=== PATIENT | female | born 1990 | race Caucasian/White ===

== ENCOUNTER 2022-06-22 18:09 | Emergency (ER) | payer BC, MEDICAID, OTHER ==
--- NOTE | 2022-06-22 18:21 | ERPHSYRPT ---
- History of Present Illness Time Seen by Provider: 06/22/22 18:21 Source: patient Exam Limitations: no limitations Physician History: This is a 31-year-old white female patient who was diagnosed with strep pharyngitis yesterday and started on a Z-Ambrose. In the last 24 hours, the patient states that she just generally feels terrible. She has body aches she has nausea and her throat is hurting. She denies chest pain. She denies shortness of breath. She has no abdominal pain. Timing/Duration: yesterday Cough Quality/Degree: mild Possible Cause: no prior episodes Modifying Factors: Improves With: coughing Associated Symptoms: cough, headache, muscle aches, sore throat Allergies/Adverse Reactions: coconut Allergy (Severe, Verified 06/22/22 18:26) anaphalaxys NSAIDS (Non-Steroidal Anti-Inflamma Adverse Reaction (Intermediate, Verified 06/22/22 18:26) ulcerative cholitis Home Medications: Dextroamphetamine/Amphetamine [Adderall Xr 20 mg Capsule] 20 mg PO BID 06/22/22 [History] Travel Risk - International Travel Have you traveled outside of the country in past 3 weeks: No - Coronavirus Screening Are you exhibiting any of the following symptoms?: Yes Symptoms: Cough: New Onset, Headaches/Body Aches/Fatigue Close contact with a COVID-19 positive Pt in past 14-21 Days: No - Review of Systems Constitutional: Weakness Eyes: No Symptoms Ears, Nose, & Throat: No Symptoms Respiratory: Cough Cardiac: No Symptoms Abdominal/Gastrointestinal: Nausea, No Abdominal Pain, No Vomiting, No Diarrhea, No Constipation Genitourinary Symptoms: No Symptoms Musculoskeletal: Arthralgias, Myalgias Skin: No Symptoms Neurological: No Symptoms Psychological: No Symptoms Endocrine: No Symptoms Hematologic/Lymphatic: No Symptoms Immunological/Allergic: No Symptoms All Other Systems: Reviewed and Negative - Past Medical History Pertinent Past Medical History: Yes - Past Surgical History Past Surgical History: Yes - Nursing Vital Signs Nursing Vital Signs: Initial Vital Signs Temperature 98.3 F 06/22/22 18:20 Pulse Rate 77 06/22/22 18:20 Respiratory Rate 20 06/22/22 18:20 Blood Pressure 113/73 06/22/22 18:20 O2 Sat by Pulse Oximetry 98 06/22/22 18:20 Pain Scale Pain Intensity 8 - Physical Exam General Appearance: no apparent distress, alert, anxiety Eye Exam: PERRL/EOMI, eyes nml inspection Ears, Nose, Throat Exam: dry mucous membranes, pharyngeal erythema Neck Exam: normal inspection, non-tender, supple, full range of motion Respiratory Exam: normal breath sounds, lungs clear, airway intact, No chest tenderness, No respiratory distress Cardiovascular Exam: regular rate/rhythm, normal heart sounds, normal peripheral pulses Gastrointestinal/Abdomen Exam: soft, normal bowel sounds, tenderness Pelvic Exam: not done Rectal Exam: not done Back Exam: normal inspection, normal range of motion, No CVA tenderness Extremity Exam: normal inspection, normal range of motion, pelvis stable Neurologic Exam: alert, oriented x 3, cooperative, 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 nml as tested, normal mood/affect, nml cerebellar function, nml station & gait, sensation nml Skin Exam: normal color, warm, dry Lymphatic Exam: No adenopathy SpO2 Interpretation: normal - Course Nursing assessment & vital signs reviewed: Yes Ordered Tests: Active Orders 24 hr Category Date Time Status BLOOD CULTURE Stat Lab 06/22/22 19:20 Received CBC W DIFF Stat Lab 06/22/22 19:15 Completed CMP Stat Lab 06/22/22 19:15 Completed HCG QUALITATIVE,SERUM Stat Lab 06/22/22 19:15 Completed [place] Screen Stat Lab 06/22/22 19:15 Completed POCT GLUCOSE Stat Lab 06/22/22 18:46 Completed UA W/RFX UR CULTURE Stat Lab 06/22/22 19:33 Completed Medication Summary Generic Name Dose Route Start Last Admin Trade Name Freq PRN Reason Stop Dose Admin Sodium Chloride 1,000 mls @ 999 mls/hr 06/22/22 20:12 06/22/22 20:15 Sodium Chloride 0.9% 1000 Ml IV 06/22/22 21:12 999 mls/hr .Q1H1M STA Administration Discontinued Medications Generic Name Dose Route Start Last Admin Trade Name Freq PRN Reason Stop Dose Admin Hydrocodone Bitart/Acetaminophen 10 ml 06/22/22 19:26 06/22/22 19:31 Hydrocodone/Acetaminophen 5 Ml Udcup PO 06/22/22 19:27 10 ml STAT STA Administration Hydrocodone Bitart/Acetaminophen Confirm 06/22/22 19:30 Hydrocodone/Acetaminophen 5 Ml Udcup Administered 06/22/22 19:31 Dose 10 ml .ROUTE .STK-MED ONE Methylprednisolone Sodium 0 mg 06/22/22 19:09 06/22/22 19:18 Succinate 125 mg/ Sterile IV 06/22/22 19:10 125 mg Water 2 ml STAT ONE Administration Sodium Chloride 500 mls @ 500 mls/hr 06/22/22 18:56 06/22/22 20:30 Sodium Chloride 0.9% 500 Ml IV 06/22/22 19:55 Infused .Q1H ONE Infusion Ceftriaxone Sodium/Dextrose 1 g in 50 mls @ 100 mls/hr 06/22/22 19:06 06/22/22 20:16 Rocephin 1 Gm-D5w 50 Ml Bag IV 06/22/22 19:35 Infused STAT STA Infusion Ceftriaxone Sodium/Dextrose Confirm 06/22/22 19:15 Rocephin 1 Gm-D5w 50 Ml Bag Administered 06/22/22 19:16 Dose 1 g in 50 mls @ ud IV .STK-MED ONE Sodium Chloride Confirm 06/22/22 19:15 Sodium Chloride 0.9% 500 Ml Administered 06/22/22 19:16 Dose 500 mls @ ud IV .STK-MED ONE Sodium Chloride Confirm 06/22/22 20:13 Sodium Chloride 0.9% 1000 Ml Administered 06/22/22 20:14 Dose 1,000 mls @ ud .ROUTE .STK-MED ONE Methylprednisolone Sodium Succinate Confirm 06/22/22 19:15 Methylprednis Sod Succ 125 Mg/2 Ml Vial Administered 06/22/22 19:16 Dose 125 mg .ROUTE .STK-MED ONE Potassium Chloride 10 meq 06/22/22 20:11 06/22/22 20:14 Potassium Chloride Tab 10 Meq Tab PO 06/22/22 20:12 10 meq STAT ONE Administration Potassium Chloride Confirm 06/22/22 20:13 Potassium Chloride Tab 10 Meq Tab Administered 06/22/22 20:14 Dose 10 meq PO .STK-MED ONE Sterile Water Confirm 06/22/22 19:15 Water For Injection,Sterile 10 Ml Vial Administered 06/22/22 19:16 Dose 10 ml IJ .STK-MED ONE Lab/Rad Data: Laboratory Result Diagrams 06/22/22 19:15 06/22/22 19:15 Laboratory Results 06/22/22 06/22/22 06/22/22 Range/Units 19:33 19:20 19:15 WBC (4.0-10.5) x10^3/uL RBC (4.1-5.4) x10^6/uL Hgb (12.0-16.0) g/dL Hct (35-47) % MCV (78-100) fL MCH (26-32) pg MCHC (32-36) g/dL RDW (11.5-14.0) % Plt Count (150-450) x10^3/uL MPV (7.5-11.0) fL Gran % (36.0-66.0) % Immature Gran % (Auto) (0.00-0.4) % Nucleat RBC Rel Count (0.00-0.1) % Eos # (Auto) (0-0.5) x10^3/uL Immature Gran # (Auto) (0.00-0.03) x10^3u/L Absolute Lymphs (auto) (1.0-4.6) x10^3/uL Absolute Monos (auto) (0.0-1.3) x10^3/uL Absolute Nucleated RBC (0.00-0.01) x10^3u/L Lymphocytes % (24.0-44.0) % Monocytes % (0.0-12.0) % Eosinophils % (0.00-5.0) % Basophils % (0.0-0.4) % Absolute Granulocytes (1.4-6.9) x10^3/uL Basophils # (0-0.4) x10^3/uL Sodium (137-145) mmol/L Potassium (3.5-5.1) mmol/L Chloride (98-107) mmol/L Carbon Dioxide (22-30) mmol/L Anion Gap (5-15) MEQ/L BUN (7-17) mg/dL Creatinine (0.52-1.04) mg/dL Estimated GFR ML/MIN Glucose (74-106) mg/dL POC Glucometer (74 to 106) mg/dL Calcium (8.4-10.2) mg/dL Total Bilirubin (0.2-1.3) mg/dL AST (14-36) U/L ALT (0-35) U/L Alkaline Phosphatase (38-126) U/L Serum Total Protein (6.3-8.2) g/dL Albumin (3.5-5.0) g/dL Serum , Qual NEGATIVE (Negative) Urine Color Yellow (Yellow) Urine Appearance Clear (Clear) Urine pH 6.5 (4.6-8.0) Ur Specific [place] <=1.005 (1.005-1.030) Urine Protein Negative (Negative) Urine Glucose (UA) Negative (Negative) mg/dL Urine Ketones Negative (Negative) Urine Blood Trace (Negative) Urine Nitrite Negative (Negative) Urine Bilirubin Negative (Negative) Urine Urobilinogen 0.2 (0.2) mg/dL Ur Leukocyte Esterase Negative (Negative) U Hyaline Cast (Auto) NONE SEEN (0-2) /LPF Urine Microscopic RBC 3-5 (0-5) /HPF Urine Microscopic WBC 0-2 (0-5) /HPF Ur Epithelial Cells Few (None Seen) /HPF Urine Bacteria None Seen (None Seen) /HPF Urine Culture Reflexed NO (NO) Monoscreen NEGATIVE (Negative) Influenza Type A Ag NEGATIVE (NEGATIVE) Influenza Type B Ag NEGATIVE (NEGATIVE) RSV (PCR) NEGATIVE (Negative) SARS-CoV-2 (PCR) NEGATIVE (NEGATIVE) 06/22/22 06/22/22 06/22/22 Range/Units 19:15 19:15 18:46 WBC 19.2 H (4.0-10.5) x10^3/uL RBC 4.49 (4.1-5.4) x10^6/uL Hgb 13.3 (12.0-16.0) g/dL Hct 41.1 (35-47) % MCV 91.5 (78-100) fL MCH 29.6 (26-32) pg MCHC 32.4 (32-36) g/dL RDW 12.6 (11.5-14.0) % Plt Count 337 (150-450) x10^3/uL MPV 9.7 (7.5-11.0) fL Gran % 84.0 H (36.0-66.0) % Immature Gran % (Auto) 0.7 H (0.00-0.4) % Nucleat RBC Rel Count 0.0 (0.00-0.1) % Eos # (Auto) 0.01 (0-0.5) x10^3/uL Immature Gran # (Auto) 0.13 H (0.00-0.03) x10^3u/L Absolute Lymphs (auto) 1.56 (1.0-4.6) x10^3/uL Absolute Monos (auto) 1.32 H (0.0-1.3) x10^3/uL Absolute Nucleated RBC 0.00 (0.00-0.01) x10^3u/L Lymphocytes % 8.1 L (24.0-44.0) % Monocytes % 6.9 (0.0-12.0) % Eosinophils % 0.1 (0.00-5.0) % Basophils % 0.2 (0.0-0.4) % Absolute Granulocytes 16.10 H (1.4-6.9) x10^3/uL Basophils # 0.04 (0-0.4) x10^3/uL Sodium 138 (137-145) mmol/L Potassium 3.2 L (3.5-5.1) mmol/L Chloride 101 (98-107) mmol/L Carbon Dioxide 26 (22-30) mmol/L Anion Gap 14.7 (5-15) MEQ/L BUN 5 L (7-17) mg/dL Creatinine 0.98 (0.52-1.04) mg/dL Estimated GFR > 60.0 ML/MIN Glucose 125 H (74-106) mg/dL POC Glucometer 129 H (74 to 106) mg/dL Calcium 8.6 (8.4-10.2) mg/dL Total Bilirubin 0.60 (0.2-1.3) mg/dL AST 22 (14-36) U/L ALT 22 (0-35) U/L Alkaline Phosphatase 115 (38-126) U/L Serum Total Protein 7.9 (6.3-8.2) g/dL Albumin 4.4 (3.5-5.0) g/dL Serum , Qual (Negative) Urine Color (Yellow) Urine Appearance (Clear) Urine pH (4.6-8.0) Ur Specific [place] (1.005-1.030) Urine Protein (Negative) Urine Glucose (UA) (Negative) mg/dL Urine Ketones (Negative) Urine Blood (Negative) Urine Nitrite (Negative) Urine Bilirubin (Negative) Urine Urobilinogen (0.2) mg/dL Ur Leukocyte Esterase (Negative) U Hyaline Cast (Auto) (0-2) /LPF Urine Microscopic RBC (0-5) /HPF Urine Microscopic WBC (0-5) /HPF Ur Epithelial Cells (None Seen) /HPF Urine Bacteria (None Seen) /HPF Urine Culture Reflexed (NO) Monoscreen (Negative) Influenza Type A Ag (NEGATIVE) Influenza Type B Ag (NEGATIVE) RSV (PCR) (Negative) SARS-CoV-2 (PCR) (NEGATIVE) - Progress Progress: improved, re-examined Air Movement: good Progress Note: 06/22/22 20:54 Patient is symptomatically improved. This patient has already been diagnosed with Streptococcus pharyngitis. She is on a Z-Ambrose. She was having muscle aches and pains and nausea and just general malaise. The work-up was based on her symptoms, history present illness, and physical exam findings. The work-up included a CBC, CMP, urinalysis, IV placement, intravenous fluid infusion and intravenous antibiotics, steroids and hydrocodone/acetaminophen elixir. The work-up results were reviewed by me. Patient does have leukocytosis as expected. The results of the work-up were discussed with the patient. Discharge plan was discussed with the patient and this includes clear liquid diet, continue the Z-Ambrose, continue steroids orally, continue the hydrocodone elixir as ordered. Patient can also add ibuprofen for pain and fever control. Blood Culture(s) Obtained: Yes Antibiotics given: Yes Counseled pt/family regarding: lab results, diagnosis, need for follow-up Medical Desision Making - Discussion of managment Reviewed:: Test results Agreed on:: Treatment plan, need for follow-up - Diagnostic Testing Diagnostic test were ordered, analyzed, and reviewed by me: Yes - Risk of complications The pt has a mod risk of morbidity or mortality based on: Need for prescription drug management - Departure Departure Disposition: Home Clinical Impression: Leukocytosis, Arthralgia, Pharyngitis Condition: Stable Critical Care Time: No Referrals: DOCTOR,NO FAMILY [Primary Care Provider] - Follow up/PCP as directed Additional Instructions: Drink plenty of cool liquids before advancing your diet. Take the antibiotics and steroids as prescribed. Follow-up with your primary care provider for further evaluation management. Prescriptions: Hydrocodone/Acetaminophen [Hydrocodone-Acetamn 7.5-325/15] 10 ml PO Q8H PRN PRN #120 ml MDD 30 ml PRN Reason: Cough Prednisone 10 mg [Deltasone 10 mg] 10 mg PO TID #12 tablet
[2022-06-22] MEDS ORDERED: Sodium Chloride 0.9% 500 ML 500 ML IV ONE ×2 (18:56→19:15)
[2022-06-22] MEDS ORDERED: ROCEPHIN 1 Gm-D5w 50 ml Bag** 1 G/50 ML IVPB IV STA (19:06)
[2022-06-22] MEDS ORDERED: solu-MEDROL 125 MG, Sterile H2O 10 ml 2 ML IV ONE ×2 (19:09)
[2022-06-22] MEDS ORDERED: solu-MEDROL ONE (19:15)
[2022-06-22] MEDS ORDERED: Sterile H2O 10 ml IJ ONE (19:15)
[2022-06-22] MEDS ORDERED: ROCEPHIN 1 Gm-D5w 50 ml Bag** 1 G/50 ML IVPB IV ONE (19:15)
[2022-06-22] MEDS ORDERED: HYDROCODONE-ACETAMIN 2.5-108/5 ML SOLUTION PO STA (19:26)
[2022-06-22 19:27] LABS: BASOPHIL % 0.2 % (0.0-0.4); Basophil (Absolute #) 0.04 x10^3/uL (0-0.4); Eosinophil % 0.1 % (0.00-5.0); Eosinophil (Absolute #) 0.01 x10^3/uL (0-0.5); Hematocrit 41.1 % (35-47); Hemoglobin 13.3 g/dL (12.0-16.0); IMMATURE GRAN # 0.13 x10^3u/L (0.00-0.03); IMMATURE GRAN % 0.7 % (0.00-0.4); Lymphocyte (Absolute #) 1.56 x10^3/uL (1.0-4.6); Lymphocytes % 8.1 % (24.0-44.0); Mean Cell Volume 91.5 fL (78-100); Mean Corpuscular Hemoglobin 29.6 pg (26-32); Mean Corpuscular Hgb Concent. 32.4 g/dL (32-36); Mean Platelet Volume 9.7 fL (7.5-11.0); Monocyte (Absolute #) 1.32 x10^3/uL (0.0-1.3); Monocytes % 6.9 % (0.0-12.0); Platelet Count 337 x10^3/uL (150-450); Red Blood Count 4.49 x10^6/uL (4.1-5.4); Red Cell Distribution Width 12.6 % (11.5-14.0); White Blood Count 19.2 x10^3/uL (4.0-10.5)
[2022-06-22] MEDS ORDERED: HYDROCODONE-ACETAMIN 2.5-108/5 ML SOLUTION ONE (19:30)
[2022-06-22 19:40] LABS: ALBUMIN 4.4 g/dL (3.5-5.0); ALKALINE PHOSPHATASE 115 U/L (38-126); ANION GAP 14.7 MEQ/L (5-15); BLOOD UREA NITROGEN 5 mg/dL (7-17); CHLORIDE 101 mmol/L (98-107); Calcium 8.6 mg/dL (8.4-10.2); Carbon Dioxide 26 mmol/L (22-30); Creatinine 1 0.98 mg/dL (0.52-1.04); EST GLOMERULAR FILTRATION RATE > 60.0 ML/MIN; Glucose 125 mg/dL (74-106); HCG QUALITATIVE,SERUM NEGATIVE (Negative); Mono Screen NEGATIVE (Negative); Potassium 3.2 mmol/L (3.5-5.1); SGOT/AST 22 U/L (14-36); SGPT/ALT 22 U/L (0-35); SODIUM 138 mmol/L (137-145); Total Protein 7.9 g/dL (6.3-8.2)
[2022-06-22 19:40] LABS: Appearance Clear (Clear); Bilirubin Negative (Negative); Blood Trace (Negative); Glucose, Urine Negative (Negative); Ketones Negative (Negative); Leukocyte Esterase Negative (Negative); Nitrite Negative (Negative); Ph 6.5 (4.6-8.0); Protein,Urine Dip Negative (Negative); Specific Gravity <=1.005 (1.005-1.030); Urobilinogen 0.2 mg/dL (0.2)
[2022-06-22 19:46] LABS: Bacteria None Seen /HPF (None Seen); Epithelial Cells Few /HPF (None Seen); Hyaline Casts NONE SEEN /LPF (0-2); WBC 0-2 /HPF (0-5)
[2022-06-22 19:47] LABS: ADD URINE CULTURE? NO (NO)
[2022-06-22 20:04] LABS: INFLUENZA A NEGATIVE (NEGATIVE); INFLUENZA B NEGATIVE (NEGATIVE); RESPIRATORY SYNCTIAL VIRUS NEGATIVE (Negative); SARS-CoV-2 Xpert Express NEGATIVE (NEGATIVE)
[2022-06-22] MEDS ORDERED: Klor Con PO ONE ×2 (20:11→20:13)
[2022-06-22 20:12] VITALS: O2SAT 96
[2022-06-22] MEDS ORDERED: Sodium Chloride 0.9% 1000 ML 1,000 ML IV STA (20:12)
[2022-06-22] MEDS ORDERED: Sodium Chloride 0.9% 1000 ML 1,000 ML ONE (20:13)
[2022-06-22 21:07] VITALS: BP 94/76; PULSE 69
== END 2022-06-22 21:12 | disposition home or self-care (01) ==
LOC: ED 18:09
DX: J02.9 Acute pharyngitis, unspecified (principal); D72.829 Elevated white blood cell count, unspecified; M25.50 Pain in unspecified joint; R11.0 Nausea; Z79.891 Long term (current) use of opiate analgesic; Z79.52 Long term (current) use of systemic steroids; Z79.899 Other long term (current) drug therapy
CPT/HCPCS: 0241U; 36415; 80053; 81001; 82947; 84703; 85025; 86308; 87040; 96360; 96365; 96374; 99284; J0696; J2930; A9270-GY

== ENCOUNTER 2022-07-09 22:07 | Emergency (ER) | payer OTHER ==
[2022-07-09 22:18] VITALS: O2SAT 100
[2022-07-09] MEDS ORDERED: STADOL 2 MG IM ONE (23:02)
[2022-07-09] MEDS ORDERED: STADOL 2 MG ONE (23:05)
--- NOTE | 2022-07-09 23:10 | ERPHSYRPT ---
- History of Present Illness Source: patient Exam Limitations: no limitations Patient Subjective Stated Complaint: rt knee pain and warmth to knee Triage Nursing Assessment: pt ambulated into ER with crutches. Pt alert and oriented x4, pleasant and cooperative. Pt c/o Rt knee pain since Sunday, but pain is much worse today. Pt feels like rt knee is warm. Rt knee is larger than left which it always is per pt, but today is bigger than usual. Pt has hx of fx rt patella with total ligament reconstruction with anchors to the patella in Apr, 2020. Physician History: 31 yo wf w h/o R patellar fx/repair presents w R knee pain x 2 days. Pt denies acute injury and states that weight bearing is bearing is becoming difficult. Pain is 9/10. She denies fever/cough/dyspnea/chest pain. Method of Injury: unknown Occurred: days ago (2 days ago) Quality: constant Severity of Pain-Max: severe Severity of Pain-Current: severe Lower Extremities Pain: knee: right Modifying Factors: Improves With: movement Associated Symptoms: unable to bear weight Allergies/Adverse Reactions: coconut Allergy (Severe, Verified 07/09/22 22:27) anaphalaxys NSAIDS (Non-Steroidal Anti-Inflamma Adverse Reaction (Intermediate, Verified 22:27) ulcerative cholitis Home Medications: Dextroamphetamine/Amphetamine [Adderall Xr 20 mg Capsule] 20 mg PO BID 06/22/22 [History] Eluxadoline [Viberzi] 100 mg PO DAILY 07/09/22 [History] Tizanidine HCl 4 mg [Zanaflex 4 MG] 4 mg PO HS 07/09/22 [History] Hx Tetanus, Diphtheria Vaccination/Date Given: Yes Hx Influenza Vaccination/Date Given: No Hx Pneumococcal Vaccination/Date Given: No Travel Risk - International Travel Have you traveled outside of the country in past 3 weeks: No - Coronavirus Screening Are you exhibiting any of the following symptoms?: No Close contact with a COVID-19 positive Pt in past 14-21 Days: No - Vaccine Status Have you recieved a Covid-19 vaccination: No - Review of Systems Constitutional: No Symptoms Eyes: No Symptoms Ears, Nose, & Throat: No Symptoms Respiratory: No Symptoms Cardiac: No Symptoms Abdominal/Gastrointestinal: No Symptoms Genitourinary Symptoms: No Symptoms Skin: No Symptoms Neurological: No Symptoms Psychological: No Symptoms Endocrine: No Symptoms Hematologic/Lymphatic: No Symptoms Immunological/Allergic: No Symptoms - Past Medical History Pertinent Past Medical History: Yes Cardiac History: Congenital Heart Disease Respiratory History: Other Endocrine Medical History: Diabetes Type II Musculoskeletal History: Fractures GI Medical History: Colitis, GERD, Other Other Medical History: ulcerative colitis. shift work sleep disorder. fibromyalgia. lung nodules - Past Surgical History Past Surgical History: Yes Musculoskeletal: Orthopedic Surgery Female Surgical History: Section Other Surgical History: c section X 3. rt knee - Social History Smoking Status: Current every day smoker How long have you smoked: 13 yrs Exposure to second hand smoke: Yes Drug Use: none Patient Lives Alone: No - Female History Hx Last Menstrual Period: 06/17/22 Hx Now: No - Nursing Vital Signs Nursing Vital Signs: Initial Vital Signs Temperature 97.6 F 07/09/22 22:17 Pulse Rate 64 07/09/22 22:17 Respiratory Rate 17 07/09/22 22:17 Blood Pressure 166/95 07/09/22 22:17 O2 Sat by Pulse Oximetry 100 07/09/22 22:17 Pain Scale Pain Intensity 9 Hypertensive - Physical Exam General Appearance: no apparent distress Eyes, Ears, Nose, Throat Exam: normal ENT inspection Neck Exam: normal inspection, non-tender, supple, full range of motion, No Brudzinski, No Kernig's, No meningismus, No carotid bruit Cardiovascular/Respiratory Exam: normal breath sounds, regular rate/rhythm, heart sounds normal Gastrointestinal/Abdominal Exam: non-tender, soft Back Exam: normal inspection, normal range of motion Hips Exam: bilateral: non-tender, normal inspection, normal range of motion, no evidence of injury Legs Exam: bilateral leg: non-tender, normal inspection, normal range of motion, no evidence of injury Knees Exam: right knee: other (R knee TTP medially/Minimal edema/No erythema/Incision fully healed/Good pedal pulse, distal sensation, and capillary return) Ankle Exam: bilateral ankle: non-tender, normal inspection, normal range of motion Foot Exam: bilateral foot: non-tender, normal inspection, normal range of motion, no evidence of injury Neuro/Tendon Exam: normal sensation, normal motor functions, normal tendon functions, responds to pain Mental Status Exam: alert, oriented x 3, cooperative Skin Exam: normal color, warm, dry, No rash SpO2 Interpretation: normal SpO2: 100 O2 Delivery: Room Air - Course Nursing assessment & vital signs reviewed: Yes - Radiology Exams Knee X-ray Interpretation: Interpreted by me (R knee-no fracture or dislocation) Ordered Tests: Active Orders 24 hr Category Date Time Status Mk Bandage Application -[facility] STAT Care 07/09/22 23:03 Completed KNEE (MIN 4 VIEW) Stat Exams 07/09/22 22:18 Taken Medication Summary Discontinued Medications Generic Name Dose Route Start Last Admin Trade Name Pablo PRN Reason Stop Dose Admin Butorphanol Tartrate 1 mg 07/09/22 23:02 07/09/22 23:06 Butorphanol Tartrate 2 Mg/Ml Vial IM 07/09/22 23:03 1 mg STAT ONE Administration Butorphanol Tartrate Confirm 07/09/22 23:05 Butorphanol Tartrate 2 Mg/Ml Vial Administered 07/09/22 23:06 Dose 2 mg .ROUTE .STK-MED ONE - Progress Progress Note: 07/09/22 23:10 Nursing note and vital signs reviewed No food or housing insecurities noted XR result shared w pt 1mg IM Stadol Mk wrap R knee per nursing/NVI Counseled pt/family regarding: diagnosis, need for follow-up, rad results - Departure Departure Disposition: Home Clinical Impression: Knee pain Condition: Stable Critical Care Time: No Referrals: DOCTOR,NO FAMILY [Primary Care Provider] - Follow up/PCP as directed Instructions: Knee Pain (DC) Additional Instructions: No weight bearing-use you crutches Follow up with your orthopedic surgeon in the morning Return to ER as needed Forms: Work/School Release Form
[2022-07-09 23:14] VITALS: BP 147/84; PULSE 67
--- NOTE | 2022-07-10 08:45 | XRAY ---
Indication: Pain. No known injury. Comparison: None 4 View right knee demonstrates minimal medial joint space narrowing and mild lateral subcutaneous venous varicosities. No other bony, articular, or soft tissue abnormalities.
== END 2022-07-09 23:23 | disposition home or self-care (01) ==
LOC: ED 22:07
DX: M25.561 Pain in right knee (principal); E11.9 Type 2 diabetes mellitus without complications; Z79.899 Other long term (current) drug therapy; Z28.310 Unvaccinated for COVID-19; Z72.0 Tobacco use
CPT/HCPCS: 73564; 96372; 99283; J0595

== ENCOUNTER 2022-09-28 16:39 | Emergency (ER) | payer OTHER ==
--- NOTE | 2022-09-28 16:46 | ERPHSYRPT ---
- History of Present Illness Time Seen by Provider: 09/28/22 16:46 Source: patient, family Exam Limitations: no limitations Physician History: This is a 31-year-old white female patient who states that she has had 5 days of intermittent headaches nausea body aches. The body aches were worse today. Patient has a cough that is chronic and unchanged and typical for her. Patient has diarrhea and there is been no change in this. She has a history of ulcerative colitis/inflammatory bowel disease. Patient is a daily smoker of cigarettes. She has a history of fibromyalgia and type 2 diabetes. Patient denies chest pain. She denies shortness of breath. She denies sore throat. She denies vomiting but she has had nausea. Patient was seen on 06/22/2022 for similar symptoms. At that time she was diagnosed with strep pharyngitis. She has no known exposure to individuals with diagnosis of a communicable illness. Timing/Duration: day(s) (5) Cough Quality/Degree: mild Possible Cause: occasional episodes Modifying Factors: Improves With: nothing Associated Symptoms: cough, muscle aches, No fever, No chills, No shortness of breath, No sore throat (Chronic) Allergies/Adverse Reactions: coconut Allergy (Severe, Verified 09/28/22 16:51) anaphalaxys NSAIDS (Non-Steroidal Anti-Inflamma Adverse Reaction (Intermediate, Verified 09/28/22 16:51) ulcerative cholitis Home Medications: Dextroamphetamine/Amphetamine [Adderall Xr 20 mg Capsule] 20 mg PO BID 06/22/22 [History] PANTOPRAZOLE 40 mg Tablet [Protonix 40MG Tablet] 1 tab PO DAILY 09/28/22 [History] Hx Tetanus, Diphtheria Vaccination/Date Given: Yes Hx Influenza Vaccination/Date Given: No Hx Pneumococcal Vaccination/Date Given: No Travel Risk - International Travel Have you traveled outside of the country in past 3 weeks: No - Coronavirus Screening Are you exhibiting any of the following symptoms?: Yes Symptoms: Headaches/Body Aches/Fatigue Close contact with a COVID-19 positive Pt in past 14-21 Days: No - Vaccine Status Have you recieved a Covid-19 vaccination: No - Review of Systems Constitutional: No Symptoms Eyes: No Symptoms Ears, Nose, & Throat: No Symptoms Respiratory: Cough Cardiac: No Symptoms Abdominal/Gastrointestinal: Nausea, No Abdominal Pain, No Vomiting, No Diarrhea, No Constipation Genitourinary Symptoms: No Symptoms Musculoskeletal: Arthralgias, Myalgias Skin: No Symptoms Neurological: Headache, No Dizziness, No Seizure Psychological: No Symptoms Endocrine: No Symptoms Hematologic/Lymphatic: No Symptoms Immunological/Allergic: No Symptoms - Past Medical History Pertinent Past Medical History: Yes Cardiac History: Congenital Heart Disease Respiratory History: Other Endocrine Medical History: Diabetes Type II Musculoskeletal History: Fractures GI Medical History: Colitis, GERD, Other Other Medical History: ulcerative colitis. shift work sleep disorder. fi bromyalgia. lung nodules - Past Surgical History Past Surgical History: Yes Musculoskeletal: Orthopedic Surgery Female Surgical History: Section Other Surgical History: c section X 3. rt knee - Social History Smoking Status: Current every day smoker How long have you smoked: 13 yrs Exposure to second hand smoke: Yes Drug Use: none Patient Lives Alone: No - Nursing Vital Signs Nursing Vital Signs: Initial Vital Signs Temperature 98.5 F 09/28/22 16:52 Pulse Rate 71 09/28/22 16:52 Respiratory Rate 18 09/28/22 16:52 Blood Pressure 146/83 09/28/22 16:52 O2 Sat by Pulse Oximetry 100 09/28/22 16:52 Pain Scale Pain Intensity 4 - Physical Exam General Appearance: no apparent distress, alert, anxiety Eye Exam: PERRL/EOMI, eyes nml inspection Ears, Nose, Throat Exam: normal ENT inspection, moist mucous membranes Neck Exam: normal inspection, non-tender, supple, full range of motion Respiratory Exam: normal breath sounds, lungs clear, airway intact, No chest tenderness, No respiratory distress Cardiovascular Exam: regular rate/rhythm, normal heart sounds, normal peripheral pulses Gastrointestinal/Abdomen Exam: soft, normal bowel sounds, No tenderness Pelvic Exam: not done Rectal Exam: not done Back Exam: normal inspection, normal range of motion, No CVA tenderness, No vertebral tenderness Extremity Exam: normal inspection, normal range of motion, pelvis stable Neurologic Exam: alert, oriented x 3, cooperative, machine tracer II-XII nml as tested, normal mood/affect, nml cerebellar function, nml station & gait, sensation nml Skin Exam: normal color, warm, dry Lymphatic Exam: No adenopathy SpO2 Interpretation: normal O2 Delivery: Room Air - Course Nursing assessment & vital signs reviewed: Yes Ordered Tests: Active Orders 24 hr Category Date Time 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 09/28/22 17:08 Active IV Insertion STAT Care 09/28/22 17:08 Active Pulse Oximetry (ED) STAT Care 09/28/22 17:08 Active CBC W DIFF Stat Lab 09/28/22 17:10 Completed CMP Stat Lab 09/28/22 17:10 Completed CULTURE,URINE Stat Lab 09/28/22 17:11 Received HCG QUALITATIVE, URINE Stat Lab 09/28/22 17:05 Completed Lactic Acid Stat Lab 09/28/22 17:08 Completed MONO SCREEN Stat Lab 09/28/22 17:05 Completed UA W/RFX UR CULTURE Stat Lab 09/28/22 17:11 Completed Medication Summary Discontinued Medications Generic Name Dose Route Start Last Admin Trade Name Freq PRN Reason Stop Dose Admin Sodium Chloride 1,000 mls @ 999 mls/hr 09/28/22 17:08 09/28/22 17:13 Sodium Chloride 0.9% 1000 Ml IV 09/28/22 18:08 999 mls/hr .Q1H1M STA Administration Sodium Chloride Confirm 09/28/22 17:12 Sodium Chloride 0.9% 1000 Ml Administered 09/28/22 17:13 Dose 1,000 mls @ ud .ROUTE .STK-MED ONE Ondansetron HCl 4 mg 09/28/22 17:14 09/28/22 17:30 Ondansetron Hcl 4 Mg/2 Ml Vial IV 09/28/22 17:15 4 mg STAT ONE Administration Ondansetron HCl Confirm 09/28/22 17:29 Ondansetron Hcl 4 Mg/2 Ml Vial Administered 09/28/22 17:30 Dose 4 mg .ROUTE .STK-MED ONE Potassium Chloride 10 meq 09/28/22 18:13 09/28/22 18:17 Potassium Chloride Tab 10 Meq Tab PO 09/28/22 18:14 10 meq STAT ONE Administration Potassium Chloride Confirm 09/28/22 18:16 Potassium Chloride Tab 10 Meq Tab Administered 09/28/22 18:17 Dose 10 meq PO .STK-MED ONE Lab/Rad Data: Laboratory Result Diagrams 09/28/22 17:10 09/28/22 17:10 Laboratory Results 09/28/22 09/28/22 09/28/22 Range/Units 17:20 17:11 17:10 WBC (4.0-10.5) x10^3/uL RBC (4.1-5.4) x10^6/uL Hgb (12.0-16.0) g/dL Hct (35-47) % MCV (78-100) fL MCH (26-32) pg MCHC (32-36) g/dL RDW (11.5-14.0) % Plt Count (150-450) x10^3/uL MPV (7.5-11.0) fL Gran % (36.0-66.0) % Immature Gran % (Auto) (0.00-0.4) % Nucleat RBC Rel Count (0.00-0.1) % Eos # (Auto) (0-0.5) x10^3/uL Immature Gran # (Auto) (0.00-0.03) x10^3u/L Absolute Lymphs (auto) (1.0-4.6) x10^3/uL Absolute Monos (auto) (0.0-1.3) x10^3/uL Absolute Nucleated RBC (0.00-0.01) x10^3u/L Lymphocytes % (24.0-44.0) % Monocytes % (0.0-12.0) % Eosinophils % (0.00-5.0) % Basophils % (0.0-0.4) % Absolute Granulocytes (1.4-6.9) x10^3/uL Basophils # (0-0.4) x10^3/uL Sodium 138 (137-145) mmol/L Potassium 3.3 L (3.5-5.1) mmol/L Chloride 102 (98-107) mmol/L Carbon Dioxide 27 (22-30) mmol/L Anion Gap 12.6 (5-15) MEQ/L BUN 5 L (7-17) mg/dL Creatinine 0.68 (0.52-1.04) mg/dL Estimated GFR > 60.0 ML/MIN Glucose 114 H (74-106) mg/dL Lactic Acid (0.4-2.0) Calcium 8.1 L (8.4-10.2) mg/dL Total Bilirubin 0.90 (0.2-1.3) mg/dL AST 27 (14-36) U/L ALT 23 (0-35) U/L Alkaline Phosphatase 99 (38-126) U/L Serum Total Protein 7.7 (6.3-8.2) g/dL Albumin 4.2 (3.5-5.0) g/dL Urine Color Yellow (Yellow) Urine Appearance Clear (Clear) Urine pH 6.0 (4.6-8.0) Ur Specific [place] 1.020 (1.005-1.030) Urine Protein Negative (Negative) Urine Glucose (UA) Negative (Negative) mg/dL Urine Ketones Trace A (Negative) Urine Blood Trace (Negative) Urine Nitrite Negative (Negative) Urine Bilirubin Negative (Negative) Urine Urobilinogen 2.0 A (0.2) mg/dL Ur Leukocyte Esterase Negative (Negative) U Hyaline Cast (Auto) NONE SEEN (0-2) /LPF Urine Microscopic RBC 6-10 A (0-5) /HPF Urine Microscopic WBC 0-2 (0-5) /HPF Ur Epithelial Cells Moderate A (None Seen) /HPF Urine Bacteria Rare A (None Seen) /HPF Urine Culture Reflexed YES (NO) Urine HCG, Qual (NEGATIVE) Monoscreen (NEGATIVE) Influenza Type A Ag NEGATIVE (NEGATIVE) Influenza Type B Ag NEGATIVE (NEGATIVE) RSV (PCR) NEGATIVE (NEGATIVE) SARS-CoV-2 (PCR) NEGATIVE (NEGATIVE) 09/28/22 09/28/22 09/28/22 Range/Units 17:10 17:08 17:05 WBC 8.0 (4.0-10.5) x10^3/uL RBC 4.50 (4.1-5.4) x10^6/uL Hgb 13.6 (12.0-16.0) g/dL Hct 42.0 (35-47) % MCV 93.3 (78-100) fL MCH 30.2 (26-32) pg MCHC 32.4 (32-36) g/dL RDW 13.1 (11.5-14.0) % Plt Count 280 (150-450) x10^3/uL MPV 9.9 (7.5-11.0) fL Gran % 83.5 H (36.0-66.0) % Immature Gran % (Auto) 0.2 (0.00-0.4) % Nucleat RBC Rel Count 0.0 (0.00-0.1) % Eos # (Auto) 0.04 (0-0.5) x10^3/uL Immature Gran # (Auto) 0.02 (0.00-0.03) x10^3u/L Absolute Lymphs (auto) 0.88 L (1.0-4.6) x10^3/uL Absolute Monos (auto) 0.38 (0.0-1.3) x10^3/uL Absolute Nucleated RBC 0.00 (0.00-0.01) x10^3u/L Lymphocytes % 11.0 L (24.0-44.0) % Monocytes % 4.7 (0.0-12.0) % Eosinophils % 0.5 (0.00-5.0) % Basophils % 0.1 (0.0-0.4) % Absolute Granulocytes 6.68 (1.4-6.9) x10^3/uL Basophils # 0.01 (0-0.4) x10^3/uL Sodium (137-145) mmol/L Potassium (3.5-5.1) mmol/L Chloride (98-107) mmol/L Carbon Dioxide (22-30) mmol/L Anion Gap (5-15) MEQ/L BUN (7-17) mg/dL Creatinine (0.52-1.04) mg/dL Estimated GFR ML/MIN Glucose (74-106) mg/dL Lactic Acid 1.5 (0.4-2.0) Calcium (8.4-10.2) mg/dL Total Bilirubin (0.2-1.3) mg/dL AST (14-36) U/L ALT (0-35) U/L Alkaline Phosphatase (38-126) U/L Serum Total Protein (6.3-8.2) g/dL Albumin (3.5-5.0) g/dL Urine Color (Yellow) Urine Appearance (Clear) Urine pH (4.6-8.0) Ur Specific [place] (1.005-1.030) Urine Protein (Negative) Urine Glucose (UA) (Negative) mg/dL Urine Ketones (Negative) Urine Blood (Negative) Urine Nitrite (Negative) Urine Bilirubin (Negative) Urine Urobilinogen (0.2) mg/dL Ur Leukocyte Esterase (Negative) U Hyaline Cast (Auto) (0-2) /LPF Urine Microscopic RBC (0-5) /HPF Urine Microscopic WBC (0-5) /HPF Ur Epithelial Cells (None Seen) /HPF Urine Bacteria (None Seen) /HPF Urine Culture Reflexed (NO) Urine HCG, Qual NEGATIVE (NEGATIVE) Monoscreen NEGATIVE (NEGATIVE) Influenza Type A Ag (NEGATIVE) Influenza Type B Ag (NEGATIVE) RSV (PCR) (NEGATIVE) SARS-CoV-2 (PCR) (NEGATIVE) - Progress Progress: improved, re-examined Air Movement: good Progress Note: 09/28/22 18:24 Since medical issues 1 of moderate complexity. The level of complexity and the work-up performed is based on the patient's past medical history, review of the patient's medication list, review of the patient's drug allergy list, history present illness and physical findings on examination. The work-up in this patient included intravenous line placement, infusion of 1 L of normal saline solution, viral studies, group A strep swab, test, urinalysis, CBC and CMP. I reviewed the results of these studies and the patient has a mild low potassium of 3.3. We gave her 10 mEq of oral potassium here in the emergency department. Patient is mildly dehydrated with trace ketones in her urine and we provided her with 1 L of normal saline solution infusion. Patient was offered both Tylenol here in the emergency department for her headache and she declined. She states she can take this at home. She also declined ibuprofen to help with her headache secondary to her having inflammatory bowel disease and she avoids NSAIDs. Patient also declines CAT scan of the head. Patient states she periodically has these types of headaches. This is not the worst headache she has ever had. She has had neurological work-up and after 5 to 7 days the headaches resolve on their own. Blood Culture(s) Obtained: No Antibiotics given: No Counseled pt/family regarding: lab results, diagnosis, need for follow-up Medical Desision Making - Diagnostic Testing Diagnostic test were ordered, analyzed, and reviewed by me: Yes - Risk of complications The pt has a mod risk of morbidity or mortality based on: Need for prescription drug management - Departure Departure Disposition: Home Clinical Impression: Body aches, Headache, Mild dehydration, Hypokalemia Condition: Stable Critical Care Time: No Referrals: DOCTOR,NO FAMILY [Primary Care Provider] - Follow up/PCP as directed Additional Instructions: Drink plenty of fluids. Eat bananas, green leafy vegetables, and eat nuts if no contraindications to help supplement potassium in your diet. Use Tylenol every 4 hours for headache control. Follow-up with your primary care provider on 09/29/2022 to make a follow-up appointment in 3 to 5 days Forms: Work/School Release Form Prescriptions: Ondansetron ODT 4 MG [Zofran Odt 4 mg] 4 mg PO Q6H PRN PRN #10 tablet PRN Reason: Vomiting
[2022-09-28] MEDS ORDERED: Sodium Chloride 0.9% 1000 ML 1,000 ML IV STA (17:08)
[2022-09-28 17:12] VITALS: O2SAT 98
[2022-09-28] MEDS ORDERED: Sodium Chloride 0.9% 1000 ML 1,000 ML ONE (17:12)
[2022-09-28] MEDS ORDERED: Zofran 4 MG/2 ML VIAL IV ONE (17:14)
[2022-09-28 17:18] LABS: HCG URINE TEST NEGATIVE (NEGATIVE)
[2022-09-28 17:20] LABS: Appearance Clear (Clear); Bacteria Rare /HPF (None Seen); Bilirubin Negative (Negative); Blood Trace (Negative); Epithelial Cells Moderate /HPF (None Seen); Glucose, Urine Negative (Negative); Hyaline Casts NONE SEEN /LPF (0-2); Ketones Trace (Negative); Leukocyte Esterase Negative (Negative); Nitrite Negative (Negative); Protein,Urine Dip Negative (Negative); WBC 0-2 /HPF (0-5)
[2022-09-28] MEDS ORDERED: Zofran 4 MG/2 ML VIAL ONE (17:29)
[2022-09-28 17:32] LABS: Absolute Neutrophil Ct (ANC) 6.68 x10^3/uL (1.4-6.9); BASOPHIL % 0.1 % (0.0-0.4); Basophil (Absolute #) 0.01 x10^3/uL (0-0.4); Eosinophil % 0.5 % (0.00-5.0); Eosinophil (Absolute #) 0.04 x10^3/uL (0-0.5); Hemoglobin 13.6 g/dL (12.0-16.0); IMMATURE GRAN # 0.02 x10^3u/L (0.00-0.03); IMMATURE GRAN % 0.2 % (0.00-0.4); Lymphocyte (Absolute #) 0.88 x10^3/uL (1.0-4.6); Mean Cell Volume 93.3 fL (78-100); Mean Corpuscular Hemoglobin 30.2 pg (26-32); Mean Corpuscular Hgb Concent. 32.4 g/dL (32-36); Mean Platelet Volume 9.9 fL (7.5-11.0); Monocyte (Absolute #) 0.38 x10^3/uL (0.0-1.3); Monocytes % 4.7 % (0.0-12.0); Neutrophil % 83.5 % (36.0-66.0); Platelet Count 280 x10^3/uL (150-450); Red Cell Distribution Width 13.1 % (11.5-14.0)
[2022-09-28 17:36] LABS: ADD URINE CULTURE? YES (NO)
[2022-09-28 17:47] LABS: ALBUMIN 4.2 g/dL (3.5-5.0); ALKALINE PHOSPHATASE 99 U/L (38-126); ANION GAP 12.6 MEQ/L (5-15); BLOOD UREA NITROGEN 5 mg/dL (7-17); CHLORIDE 102 mmol/L (98-107); Calcium 8.1 mg/dL (8.4-10.2); Carbon Dioxide 27 mmol/L (22-30); Creatinine 1 0.68 mg/dL (0.52-1.04); EST GLOMERULAR FILTRATION RATE > 60.0 ML/MIN; Glucose 114 mg/dL (74-106); Potassium 3.3 mmol/L (3.5-5.1); SGOT/AST 27 U/L (14-36); SGPT/ALT 23 U/L (0-35); SODIUM 138 mmol/L (137-145); Total Protein 7.7 g/dL (6.3-8.2)
[2022-09-28 18:10] LABS: INFLUENZA A NEGATIVE (NEGATIVE); INFLUENZA B NEGATIVE (NEGATIVE); RESPIRATORY SYNCTIAL VIRUS NEGATIVE (NEGATIVE); SARS-CoV-2 Xpert Express NEGATIVE (NEGATIVE)
[2022-09-28] MEDS ORDERED: Klor Con PO ONE ×2 (18:13→18:16)
[2022-09-28 18:23] VITALS: BP 123/81; PULSE 58
== END 2022-09-28 18:37 | disposition home or self-care (01) ==
LOC: ED 16:39
DX: M79.10 Myalgia, unspecified site (principal); R51.9 Headache, unspecified; E86.0 Dehydration; E87.6 Hypokalemia; R11.0 Nausea; E11.9 Type 2 diabetes mellitus without complications; Z79.899 Other long term (current) drug therapy; Z28.310 Unvaccinated for COVID-19; Z72.0 Tobacco use
CPT/HCPCS: 0241U; 36000; 36415; 80053; 81001; 81025; 83605; 85025; 86308; 87086; 87651; 93041; 94760; 96360; 96374; 99284; J2405; A9270-GY